=== PATIENT | male | born 1945 | race Caucasian/White ===

== ENCOUNTER 2017-10-20 01:42 | Inpatient (IN) | payer MEDICARE ==
[~2017-10-20] VITALS: Ht 180.3 cm; Wt 74.2 kg
[2017-10-20 03:05] LABS: BASOPHILS 0.2 % (0-2); EOSINOPHILS 0.9 % (0-7); HEMATOCRIT 41.3 % (42.0-54.0); IMMATURE GRANULOCYTES 1.5 % (0-5); LYMPHOCYTES 22.5 % (15-50); MCH 30.7 pg (26.0-34.0); MCHC 33.9 g/dL (31.0-37.0); MCV 90.6 fL (80.0-100.0); MEAN PLATELET VOLUME 9.7 fL (7.4-10.4); MONOCYTES 11.2 % (2-11); NEUTROPHILS 63.7 % (40-80); PLATELET COUNT 185 10x3/uL (130-400); RBC 4.56 10x6/uL (4.20-6.10); WBC 4.7 10x3/uL (4.8-10.8)
[2017-10-20 03:07] LABS: ALBUMIN 3.4 g/dL (3.4-5.0); ALKALINE PHOSPHATASE 37 U/L (46-116); ALT (SGPT) 37 U/L (10-68); BILIRUBIN - TOTAL 0.29 mg/dL (0.2-1.3); CALC OSMOLALITY 262 mosm/kg (275-300); CALCIUM 8.1 mg/dL (8.5-10.1); CARBON DIOXIDE 24.4 mmol/L (21.0-32.0); CHLORIDE - SERUM 93 mmol/L (98-107); CREATININE - SERUM 1.5 mg/dL (0.6-1.3); GLUCOSE 156 mg/dL (74-106); POTASSIUM - SERUM 4.2 mmol/L (3.5-5.1); PROTEIN - SERUM 6.6 g/dL (6.4-8.2); SODIUM 128 mmol/L (136-145); UREA NITROGEN 20 mg/dL (7-18); eGFR NON AFRICAN AMERICAN 49 mL/min (90-120)
[2017-10-20 03:10] LABS: APTT 26.7 SECONDS (22.8-39.4); INR 1.08 (0.85-1.17); PROTIME 13.6 SECONDS (11.6-15.0)
[2017-10-20 03:11] LABS: D-DIMER-QUANTITATIVE 0.67 ug/mLFEU (0.20-0.54)
[2017-10-20 03:19] LABS: AMYLASE - SERUM 93 U/L (25-115); CKMB 0.4 U/L (0.0-3.6); CREATINE KINASE 37 UL (21-232); LIPASE 763 U/L (73-393); TROPONIN-I < 0.017 ng/mL (0.000-0.060)
[2017-10-20] MEDS ORDERED: METOPROLOL TAR100 M1 PO (19:49)
[2017-10-20] MEDS ORDERED: ZESTRIL40 MG PO (19:49)
[2017-10-20] MEDS ORDERED: FORTAMET1000 MG/BO PO (19:49)
[2017-10-20] MEDS ORDERED: NORVASC2.5 MG PO (19:50)
[2017-10-20 20:00] VITALS: BP 135/80
[2017-10-21 04:31] LABS: BASOPHILS 0.2 % (0-2); EOSINOPHILS 1.7 % (0-7); HEMATOCRIT 38.8 % (42.0-54.0); HEMOGLOBIN 13.2 g/dL (13.5-17.5); IMMATURE GRANULOCYTES 1.4 % (0-5); LYMPHOCYTES 38.4 % (15-50); MCH 31.1 pg (26.0-34.0); MCV 91.3 fL (80.0-100.0); MEAN PLATELET VOLUME 9.6 fL (7.4-10.4); MONOCYTES 15.1 % (2-11); NEUTROPHILS 43.2 % (40-80); PLATELET COUNT 205 10x3/uL (130-400); RBC 4.25 10x6/uL (4.20-6.10); RDW 13.2 % (11.5-14.5); WBC 4.2 10x3/uL (4.8-10.8)
[2017-10-21 04:53] LABS: ANION GAP 10.3 mmol/L (8-16); BILIRUBIN - TOTAL 0.35 mg/dL (0.2-1.3); CALCIUM 7.4 mg/dL (8.5-10.1); CARBON DIOXIDE 26.7 mmol/L (21.0-32.0); CHOL - HDL RATIO 3.8 ratio (2.3-4.9); CREATININE - SERUM 1.2 mg/dL (0.6-1.3)
[2017-10-21 06:12] VITALS: BP 98/71
[2017-10-21 08:38] VITALS: BP 120/71
[2017-10-21 12:27] VITALS: Ht 180.3 cm; Wt 74.2 kg
[2017-10-21 12:30] VITALS: BP 119/74
[2017-10-21 13:38] LABS: APPEARANCE CLEAR (CLEAR); BILIRUBIN NEGATIVE (NEGATIVE); COLOR YELLOW (YELLOW); GLUCOSE NEGATIVE (NEGATIVE); KETONE MODERATE mg/dL (NEGATIVE); NITRITE NEGATIVE (NEGATIVE); PROTEIN NEGATIVE (NEGATIVE); UROBILINOGEN NORMAL (NORMAL)
[2017-10-21 20:00] VITALS: BP 135/81
[2017-10-22 04:00] VITALS: BP 126/79
[2017-10-22 04:23] LABS: ALBUMIN 2.8 g/dL (3.4-5.0); ANION GAP 9.3 mmol/L (8-16); BILIRUBIN - TOTAL 0.34 mg/dL (0.2-1.3); CALCIUM 7.2 mg/dL (8.5-10.1); CARBON DIOXIDE 24.3 mmol/L (21.0-32.0); CREATININE - SERUM 1.1 mg/dL (0.6-1.3); POTASSIUM - SERUM 3.6 mmol/L (3.5-5.1); PROTEIN - SERUM 5.7 g/dL (6.4-8.2)
[2017-10-22 04:26] LABS: BASOPHILS 0.2 % (0-2); EOSINOPHILS 2.2 % (0-7); HEMOGLOBIN 12.4 g/dL (13.5-17.5); IMMATURE GRANULOCYTES 1.3 % (0-5); LYMPHOCYTES 35.7 % (15-50); MCH 30.4 pg (26.0-34.0); MCHC 33.5 g/dL (31.0-37.0); MCV 90.7 fL (80.0-100.0); MEAN PLATELET VOLUME 9.7 fL (7.4-10.4); MONOCYTES 15.3 % (2-11); NEUTROPHILS 45.3 % (40-80); PLATELET COUNT 213 10x3/uL (130-400); RBC 4.08 10x6/uL (4.20-6.10); RDW 13.2 % (11.5-14.5); WBC 4.6 10x3/uL (4.8-10.8)
[2017-10-22 08:48] VITALS: BP 145/90
[2017-10-22 11:46] VITALS: BP 142/78
== END 2017-10-22 16:13 | disposition home or self-care (01) | DRG 439 ==
LOC: D.ER 01:42 → D.EDHOLD 03:57 → D.M2 03:57
PROVIDERS: Emergency Medicine; Family Medicine; Internal Medicine Gastroenterology
DX: K85.90 Acute pancreatitis without necrosis or infection, unspecified (principal); E87.1 Hypo-osmolality and hyponatremia; N17.9 Acute kidney failure, unspecified; E86.0 Dehydration; E11.65 Type 2 diabetes mellitus with hyperglycemia; J11.1 Influenza due to unidentified influenza virus with other respiratory manifestations